=== PATIENT | female | born 1985 | race Caucasian/White ===

== ENCOUNTER 2025-04-09 10:02 | Emergency (ER) | payer OTHER ==
[~2025-04-09] VITALS: Ht 157.5 cm; Wt 80.1 kg
[2025-04-09 10:28] VITALS: TEMP 97.7
[2025-04-09 10:34] LABS: PLATELET COUNT (AUTO) 172 K/uL (150-450); RED BLOOD CELL COUNT(AUTO) 4.15 MIL/uL (4.00-5.20); RED CELL DISTRIBUTION WIDTH 18.6 % (11.5-14.5); WHITE BLOOD COUNT (AUTO) 2.7 K/uL (4.5-11.0)
[2025-04-09 10:38] LABS: CALCIUM, TOTAL 7.6 mg/dL (8.8-10.5); CREATININE 0.99 mg/dL (0.60-1.30); GLOMERULAR FILTR. RATE CALC > 60 mL/min (>60); GLUCOSE,RANDOM 104 mg/dL (70-110); SODIUM SERUM 139 mmol/L (136-145); UREA NITROGEN, BLOOD 9 mg/dL (7-18)
[2025-04-09 10:42] LABS: ASPARTATE AMINOTRANSFERASE 57.0 U/L (15-37); TOTAL PROTEIN, SERUM 5.9 g/dL (6.4-8.2)
[2025-04-09 10:50] LABS: HCG,QUANTITATIVE < 1 mIU/mL (0-6)
[2025-04-09] MEDS: MAG HYDROX/ALUMINUM HYD/SIMETH 30 ML SUSPENSION UDCUP PO ONE (10:52)
[2025-04-09] MEDS: FAMOTIDINE 20 MG TABLET PO ONE (10:52)
[2025-04-09] MEDS ORDERED: TOPI200T68 PO (13:24)
[2025-04-09] MEDS ORDERED: LAMO200T10 PO (13:24)
[2025-04-09] MEDS ORDERED: BUPR-49 PO (13:24)
[2025-04-09 13:48] VITALS: BP 119/74; PULSE 72; RESP 16; O2SAT 97
[2025-04-09 13:49] LABS: APPEARANCE,URINE CLEAR (CLEAR); GLUCOSE, URINE (UA) NEGATIVE (NEGATIVE); LEUKOCYTE ESTERASE ,URINE NEGATIVE (NEGATIVE); NITRATE,URINE NEGATIVE (NEGATIVE); OCCULT BLOOD,URINE NEGATIVE (NEGATIVE); SPECIFIC GRAVITIY, URINE 1.034 (1.003-1.030)
[2025-04-09] MEDS ORDERED: FAMO20 PO (13:56)
== END 2025-04-09 16:45 | disposition home or self-care (01) ==
LOC: EMS 11:52
DX: K21.9 Gastro-esophageal reflux disease without esophagitis (principal); F31.9 Bipolar disorder, unspecified; N89.8 Other specified noninflammatory disorders of vagina; Z90.721 Acquired absence of ovaries, unilateral; Z90.49 Acquired absence of other specified parts of digestive tract; Z79.899 Other long term (current) drug therapy
CPT/HCPCS: 80048; 80076; 81003; 83690; 84702; 85025; 99283